=== PATIENT | female | born 1985 | race Caucasian/White ===

== ENCOUNTER 2020-04-21 09:53 | Emergency (ER) | payer BC, MEDICAID ==
[2020-04-21] MEDS ORDERED: Alum Hydrox/Mag Hydrox/Simeth 15 ML, Lidocaine 2% 15 ML PO ONE ×2 (10:47)
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
[2020-04-21 11:03] VITALS: BP 172/115; PULSE 95
== END 2020-04-21 11:37 | disposition home or self-care (01) ==
LOC: JP.ED 09:53
DX: O99.613 Diseases of the digestive system complicating pregnancy, third trimester (principal); K21.9 Gastro-esophageal reflux disease without esophagitis; Z88.1 Allergy status to other antibiotic agents; Z3A.33 33 weeks gestation of pregnancy
CPT/HCPCS: 36415; 80053; 81001; 82150; 83690; 85025; 99283; 99284; A9270-GY

== ENCOUNTER 2020-04-21 11:29 | Observation (INO) | payer BC, MEDICAID ==
[2020-04-21] MEDS ORDERED: Sodium Chloride 0.9% 1,000 ML IV SCH (12:15)
[2020-04-21] MEDS ORDERED: Labetalol 20 MG/4 ML Syringe IVPUSH ONE (12:56)
[2020-04-21] MEDS ORDERED: Magnesium Sulfate/Water 4 GM/100 ML BAG ONE (13:40)
[2020-04-21] MEDS ORDERED: Sodium Chloride 0.9% 10 ML Syringe FLUSH PRN (13:44)
[2020-04-21] MEDS ORDERED: Dextrose 5%-Lactated Ringers 1,000 ML IV SCH (13:45)
[2020-04-21] MEDS ORDERED: Ondansetron 4 MG/2 ML SDV IVPUSH PRN (13:51)
[2020-04-21] MEDS ORDERED: Magnesium Sulfate/Water 40 GM/1,000 ML BAG ONE (13:51)
[2020-04-21] MEDS ORDERED: Magnesium Sulfate/Water 40 GM/1,000 ML BAG IV SCH (14:00)
[2020-04-21] MEDS ORDERED: Calcium Gluconate 10% 1 GM/10 ML SDV IVPUSH PRN (14:00)
[2020-04-21] MEDS: Betamethasone Acetate/Betamethasone Sod Phosphate 30 MG/5 ML MDV IM ONE ×2 (14:45→14:50)
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
--- NOTE | 2020-04-21 15:14 | PCM.PN ---
- General Info Date of Service: 04/21/20 - Review of Systems General: Reports: No Symptoms HEENT: Reports: No Symptoms, Other (some blurry vision at times) Pulmonary: Reports: No Symptoms Cardiovascular: Reports: No Symptoms Gastrointestinal: Reports: Abdominal Pain, Nausea Genitourinary: Reports: No Symptoms Musculoskeletal: Reports: No Symptoms Skin: Reports: No Symptoms Neurological: Reports: No Symptoms Psychiatric: Reports: No Symptoms - Patient Data Vitals - Most Recent: Last Vital Signs Temp 35.1 C L 04/21/20 11:39 Pulse 82 04/21/20 14:35 Resp 16 04/21/20 14:35 BP 141/91 H 04/21/20 14:35 Pulse Ox 93 L 04/21/20 14:35 Weight - Most Recent: 129 kg Lab Results Last 24 Hours: Laboratory Results - last 24 hr 04/21/20 04/21/20 04/21/20 Range/Units 10:54 10:54 12:11 Magnesium (1.8-2.4) mg/dL Lactate Dehydrogenase 297 H (82-234) U/L Ur Random Creatinine 246.6 (20.0-370.0) mg/dL U Random Total Protein 1784.0 H (6.0-11.9) mg/dL Protein/Creatinin Ratio 7234.4 H (21.0-161.0) mg/g Urine Opiates Screen (NEGATIVE) Ur Oxycodone Screen (NEGATIVE) Urine Methadone Screen (NEGATIVE) Ur Propoxyphene Screen (NEGATIVE) Ur Barbiturates Screen (NEGATIVE) Ur Tricyclics Screen (NEGATIVE) Ur Phencyclidine Scrn (NEGATIVE) Ur Amphetamine Screen (NEGATIVE) U Methamphetamines Scrn (NEGATIVE) Urine MDMA Screen (NEGATIVE) U Benzodiazepines Scrn (NEGATIVE) U Cocaine Metab Screen (NEGATIVE) U Marijuana (THC) Screen (NEGATIVE) HIV-1 Ab Rapid Screen (NON-REACT.) SARS CoV-2 RNA Rapid IFEOMA Blood Type O NEGATIVE 04/21/20 04/21/20 04/21/20 Range/Units 13:24 13:25 13:30 Magnesium 1.6 L (1.8-2.4) mg/dL Lactate Dehydrogenase (82-234) U/L Ur Random Creatinine (20.0-370.0) mg/dL U Random Total Protein (6.0-11.9) mg/dL Protein/Creatinin Ratio (21.0-161.0) mg/g Urine Opiates Screen Negative (NEGATIVE) Ur Oxycodone Screen Negative (NEGATIVE) Urine Methadone Screen Negative (NEGATIVE) Ur Propoxyphene Screen Negative (NEGATIVE) Ur Barbiturates Screen Negative (NEGATIVE) Ur Tricyclics Screen Negative (NEGATIVE) Ur Phencyclidine Scrn Negative (NEGATIVE) Ur Amphetamine Screen Negative (NEGATIVE) U Methamphetamines Scrn Negative (NEGATIVE) Urine MDMA Screen Negative (NEGATIVE) U Benzodiazepines Scrn Negative (NEGATIVE) U Cocaine Metab Screen Negative (NEGATIVE) U Marijuana (THC) Screen Negative (NEGATIVE) HIV-1 Ab Rapid Screen (NON-REACT.) SARS CoV-2 RNA Rapid IFEOMA Negative Blood Type 04/21/20 Range/Units 13:40 Magnesium (1.8-2.4) mg/dL Lactate Dehydrogenase (82-234) U/L Ur Random Creatinine (20.0-370.0) mg/dL U Random Total Protein (6.0-11.9) mg/dL Protein/Creatinin Ratio (21.0-161.0) mg/g Urine Opiates Screen (NEGATIVE) Ur Oxycodone Screen (NEGATIVE) Urine Methadone Screen (NEGATIVE) Ur Propoxyphene Screen (NEGATIVE) Ur Barbiturates Screen (NEGATIVE) Ur Tricyclics Screen (NEGATIVE) Ur Phencyclidine Scrn (NEGATIVE) Ur Amphetamine Screen (NEGATIVE) U Methamphetamines Scrn (NEGATIVE) Urine MDMA Screen (NEGATIVE) U Benzodiazepines Scrn (NEGATIVE) U Cocaine Metab Screen (NEGATIVE) U Marijuana (THC) Screen (NEGATIVE) HIV-1 Ab Rapid Screen Non-reactive (NON-REACT.) SARS CoV-2 RNA Rapid IFEOMA Blood Type Med Orders - Current: Current Medications Calcium Gluconate (Calcium Gluconate) 1 gm IVPUSH ONETIME PRN PRN Reason: MAGNESIUM TOXICITY Sodium Chloride (Normal Saline) 1,000 mls @ 0 mls/hr IV ASDIRECTED [facility] Last Admin: 04/21/20 12:30 Dose: 25 mls/hr Documented by: Magnesium Sulfate (Magnesium Sulfate In Water Premix) 40 gm in 1,000 mls @ 50 mls/hr IV ASDIRECTED [facility] Last Admin: 04/21/20 14:26 Dose: 50 mls/hr Documented by: Dextrose/Lactated Ringer's (Dextrose 5%-Lactated Ringers) 1,000 mls @ 0 mls/hr IV ASDIRECTED [facility] Ondansetron HCl (Zofran) 4 mg IVPUSH Q4H PRN PRN Reason: Nausea/Vomiting Last Admin: 04/21/20 14:13 Dose: 4 mg Documented by: Sodium Chloride (Saline Flush) 10 ml FLUSH ASDIRECTED PRN PRN Reason: Keep Vein Open Discontinued Medications Betamethasone Acet/Betameth SodPhos (Celestone Soluspan 6 Mg/Ml) 12 mg IM ONETIME ONE Stop: 04/21/20 13:31 Last Admin: 04/21/20 14:50 Dose: 2 ml Documented by: Magnesium Sulfate 6 gm/ Sodium (Chloride) 162 mls @ 350 mls/hr IV ONETIME ONE Stop: 04/21/20 14:12 Last Admin: 04/21/20 13:49 Dose: 350 mls/hr Documented by: Magnesium Sulfate (Magnesium Sulfate In Water Premix) Confirm Administered Dose 6 gm in 150 mls @ as directed .ROUTE .STK-MED ONE Stop: 04/21/20 13:41 Last Admin: 04/21/20 14:07 Dose: Not Given Documented by: Magnesium Sulfate (Magnesium Sulfate In Water Premix) Confirm Administered Dose 40 gm in 1,000 mls @ as directed .ROUTE .STK-MED ONE Stop: 04/21/20 13:52 Last Admin: 04/21/20 14:07 Dose: Not Given Documented by: Labetalol HCl (Normodyne) 20 mg IVPUSH NOW ONE; Protocol Stop: 04/21/20 12:57 Last Admin: 04/21/20 13:32 Dose: 20 mg Documented by: Sepsis Event Note - Focused Exam Vital Signs: Vital Signs Temp Pulse Resp BP Pulse Ox 04/21/20 14:35 82 16 141/91 H 93 L 04/21/20 14:30 91 16 155/89 H 93 L 04/21/20 14:25 82 16 145/87 H 93 L 04/21/20 14:20 83 16 145/88 H 97 04/21/20 14:15 93 16 148/99 H 97 04/21/20 14:10 88 16 146/93 H 97 04/21/20 14:05 87 16 152/84 H 95 04/21/20 14:00 91 16 150/86 H 98 04/21/20 13:55 87 16 149/94 H 95 04/21/20 13:49 87 16 148/87 H 04/21/20 13:44 157/97 H 04/21/20 13:40 153/90 H 04/21/20 13:33 89 171/95 H 04/21/20 13:15 87 16 153/83 H 98 04/21/20 13:00 81 16 152/91 H 97 04/21/20 12:40 87 16 166/97 H 96 04/21/20 12:30 84 16 155/92 H 97 04/21/20 11:49 93 156/93 H 04/21/20 11:39 35.1 C L 92 16 151/100 H 97 - Problem List & Annotations (1) Abdominal pain SNOMED Code(s): 23168347 Code(s): R10.9 - UNSPECIFIED ABDOMINAL PAIN Status: Acute Current Visit: Yes Qualifiers: Abdominal location: right upper quadrant Qualified Code(s): R10.11 - Right upper quadrant pain (2) Family history of congenital heart defect SNOMED Code(s): 780458198 Code(s): Z82.79 - FAM HX OF CONGEN MALFORM, DEFORMATIONS AND CHROMSOML ABNLT Status: Acute Current Visit: Yes (3) Grand multipara SNOMED Code(s): 45733125 Code(s): Z64.1 - PROBLEMS RELATED TO MULTIPARITY Status: Acute Current Visit: Yes (4) History of 2 sections SNOMED Code(s): 846924031 Code(s): Z98.891 - HISTORY OF UTERINE SCAR FROM PREVIOUS SURGERY Status: Acute Current Visit: Yes (5) History of rupture of uterus SNOMED Code(s): 759983878, 780811279 Code(s): Z87.828 - PERSONAL HISTORY OF OTH (HEALED) PHYSICAL INJURY AND TRAUMA Status: Acute Current Visit: Yes (6) Insufficient care SNOMED Code(s): 4300235911978 Code(s): O09.30 - SUPRVSN OF PREG W INSUFFICIENT ANTENAT CARE, UNSP TRIMESTER Status: Acute Current Visit: Yes Qualifiers: Trimester: third trimester Qualified Code(s): O09.33 - Supervision of with insufficient care, third trimester (7) Pre-eclampsia in third trimester SNOMED Code(s): 291248063, 165698582 Code(s): O14.93 - UNSPECIFIED PRE-ECLAMPSIA, THIRD TRIMESTER Status: Acute Current Visit: Yes (8) Protein in urine SNOMED Code(s): 69774426 Code(s): R80.9 - PROTEINURIA, UNSPECIFIED Status: Acute Current Visit: Yes Qualifiers: Proteinuria type: gestational Trimester: third trimester Qualified Code(s): O12.13 - Gestational proteinuria, third trimester - Problem List Review Problem List Initiated/Reviewed/Updated: Yes - My Orders Last 24 Hours: My Active Orders 04/21/20 10:54 RUBELLA ANTIBODIES, IGG Routine T PALLIDUM SCREENING CASCADE Routine 04/21/20 12:15 Sodium Chloride 0.9% [Normal Saline] 1,000 ml IV ASDIRECTED 04/21/20 13:21 BPP w NST [US] Routine OB 1st Tri Sgl 1st Gest [US] Routine 04/21/20 13:33 Intake and Output Strict [RC] ASDIRECTED Urinary Catheter Assessment [RC] ASDIRECTED 04/21/20 13:40 HBSAG SCREEN Routine 04/21/20 13:44 Sodium Chloride 0.9% [Saline Flush] 10 ml FLUSH ASDIRECTED PRN Resuscitation Status Routine 04/21/20 13:45 Patient Status [ADT] Routine Heart Rate [RC] Click to Edit Monitoring [RC] CONTINUOUS Height and Weight [RC] UPON Insert Urinary Catheter [OM.PC] Q24H Intake and Output Strict [RC] ASDIRECTED Notify Provider [RC] PRN Notify Provider [RC] PRN Notify Provider [RC] PRN Notify Provider [RC] PRN Peripheral IV Care [RC] . DIRECTED Peripheral IV Care [RC] . DIRECTED Positioning, Left Lateral [RC] ASDIRECTED Vital Signs [RC] PER UNIT ROUTINE Dextrose 5%-Lactated Ringers 1,000 ml IV ASDIRECTED Deep Tendon Reflexes [WOMSER] Per Unit Routine Peripheral IV Insertion Adult [OM.PC] Routine Seizure Precautions [OM.PC] Routine 04/21/20 13:51 Ondansetron [Zofran] 4 mg IVPUSH Q4H PRN 04/21/20 14:00 Calcium Gluconate 1 gm IVPUSH ONETIME PRN Magnesium Sulfate/Water [Magnesium Sulfate in Water Premix] 40 gm in 1,000 ml IV ASDIRECTED - Assessment Assessment:: 04/21/2020 34 yo at 32 5/7 gestational weeks Pre-eclampsia HELLP syndrome Elevated Urine Protein Grand multiparity History of 2 C/Sections History of Uterine Rupture Insufficient Care O negative blood type BP currently 150s/90s with IV labetalol Ultrasound shows breech presentation BPP-09/[address] Barry[facility] contacted for transfer Patient agrees with plan of care and verbalizes understanding Plan to transport as soon as possible - Plan Plan:: 04/21/2020 34 yo here at a unconfirmed gestational age 32 5/7 [id number]-95/28/2021 that was done with a noncertified cabin furnishings installer. Patient was planning a home with Ashwini Mitchell-veneer stock layer. She has had 2-C/Sections last one being due to uterine rupture. When presenting it was what she said was reflux with right upper quadrant pain and was wanting evaluated in the emergency department due to planning a home , after ER began to evaluate it was noted that she was very hypertensive. Because of this she was transferred up to the Labor and Delivery department. Bps have been as high as 170s over 115. On admission patient was unsure if would agree to treatment-did allow us to do some confirming labs See lab [id number], Platelets-123, AST-69, ALT-94, LDH-297, Protein/Creatinine-7234, Patient was then educated that she has severe preeclampsia with impending HELLP syndrome. Patient then agreed to treatment and transfer if accepting provider. Pre-eclampsia HELLP syndrome Elevated Urine Protein Grand multiparity History of 2 C/Sections History of Uterine Rupture Insufficient Care O negative blood type Plan- Give labetalol 20mg IV now, Start Magnesium IV now-6gram bolus, then 2 grams per hour Betamethasone 12mg IM now repeat dose in 24 hours if still IV TKO [id number] Continuous monitoring Bedrest Insert urine massey catheter with urometer Hourly Intake and Output Vital signs per hypertension policy Deep tendon refluxes and clonus every 1-2 hrs Draw OB panel labs Ultrasound complete and BPP stat Seizure precautions Plan to get accepting and transfer to a higher level of care with NICU accepting
--- NOTE | 2020-04-21 15:28 | PCM.DCSUM1 ---
Discharge Summary - Hospital Course HPI Initial Comments: 04/21/2020 34 yo here at a unconfirmed gestational age 32 5/7 [id number]/28/2021 that was done with a noncertified heater installer. Patient was planning a home with Ashwini Mitchell-rug layer. She has had 2-C/Sections last one being due to uterine rupture. When presenting it was what she said was reflux with right upper quadrant pain and was wanting evaluated in the emergency department due to planning a home , after ER began to evaluate it was noted that she was very hypertensive. Because of this she was transferred up to the Labor and Delivery department. Bps have been as high as 170s over 115. On admission patient was unsure if would agree to treatment-did allow us to do some confirming labs See lab [id number]-10.5, Platelets-123, AST-69, ALT-94, LDH-297, Protein/Creatinine-7234, Patient was then educated that she has severe preeclampsia with impending HELLP syndrome. Patient then agreed to treatment and transfer if accepting provider. Pre-eclampsia HELLP syndrome Elevated Urine Protein Grand multiparity History of 2 C/Sections History of Uterine Rupture Insufficient Care O negative blood type - Discharge Data Discharge Date: 04/21/20 Discharge Disposition: DC/Tfer to Acute Hospital 02 Condition: Good - Referral to Home Health Primary Care Physician: PCP None - Discharge Diagnosis/Problem(s) (1) Abdominal pain SNOMED Code(s): 18901268 ICD Code: R10.9 - UNSPECIFIED ABDOMINAL PAIN Status: Acute Current Visit: Yes Qualifiers: Abdominal location: right upper quadrant Qualified Code(s): R10.11 - Right upper quadrant pain (2) Family history of congenital heart defect SNOMED Code(s): 890767588 ICD Code: Z82.79 - FAM HX OF CONGEN MALFORM, DEFORMATIONS AND CHROMSOML ABNLT Status: Acute Current Visit: Yes (3) Grand multipara SNOMED Code(s): 87607042 ICD Code: Z64.1 - PROBLEMS RELATED TO MULTIPARITY Status: Acute Current Visit: Yes (4) History of 2 sections SNOMED Code(s): 394862078 ICD Code: Z98.891 - HISTORY OF UTERINE SCAR FROM PREVIOUS SURGERY Status: Acute Current Visit: Yes (5) History of rupture of uterus SNOMED Code(s): 093189667, 763813610 ICD Code: Z87.828 - PERSONAL HISTORY OF OTH (HEALED) PHYSICAL INJURY AND TRAUMA Status: Acute Current Visit: Yes (6) Insufficient care SNOMED Code(s): 2954160348676 ICD Code: O09.30 - SUPRVSN OF PREG W INSUFFICIENT ANTENAT CARE, UNSP TRIMESTER Status: Acute Current Visit: Yes Qualifiers: Trimester: third trimester Qualified Code(s): O09.33 - Supervision of with insufficient care, third trimester (7) Pre-eclampsia in third trimester SNOMED Code(s): 537964627, 408084147 ICD Code: O14.93 - UNSPECIFIED PRE-ECLAMPSIA, THIRD TRIMESTER Status: Acute Current Visit: Yes (8) Protein in urine SNOMED Code(s): 76299519 ICD Code: R80.9 - PROTEINURIA, UNSPECIFIED Status: Acute Current Visit: Yes Qualifiers: Proteinuria type: gestational Trimester: third trimester Qualified Code(s): O12.13 - Gestational proteinuria, third trimester - Discharge Plan *PRESCRIPTION DRUG MONITORING PROGRAM REVIEWED*: No *COPY OF PRESCRIPTION DRUG MONITORING REPORT IN PATIENT LEONARDO: No Home Medications: Home Meds Vit #76/Iron,Carb/Fa [Pnv 29-1 Tablet] 1 each PO DAILY 02/03/14 [History] - Discharge Summary/Plan Comment DC Time >30 min.: Yes Discharge Summary/Plan Comment: Patient is transfer care to a higher level of care in [facility]-Dr. Barry - Patient Data Vitals - Most Recent: Last Vital Signs Temp 35.1 C L 04/21/20 11:39 Pulse 88 04/21/20 15:10 Resp 16 04/21/20 15:10 BP 152/91 H 04/21/20 15:10 Pulse Ox 93 L 04/21/20 15:10 Weight - Most Recent: 129 kg Lab Results - Last 24 hrs: Laboratory Results - last 24 hr 04/21/20 04/21/20 04/21/20 Range/Units 10:54 10:54 12:11 Magnesium (1.8-2.4) mg/dL Lactate Dehydrogenase 297 H (82-234) U/L Ur Random Creatinine 246.6 (20.0-370.0) mg/dL U Random Total Protein 1784.0 H (6.0-11.9) mg/dL Protein/Creatinin Ratio 7234.4 H (21.0-161.0) mg/g Urine Opiates Screen (NEGATIVE) Ur Oxycodone Screen (NEGATIVE) Urine Methadone Screen (NEGATIVE) Ur Propoxyphene Screen (NEGATIVE) Ur Barbiturates Screen (NEGATIVE) Ur Tricyclics Screen (NEGATIVE) Ur Phencyclidine Scrn (NEGATIVE) Ur Amphetamine Screen (NEGATIVE) U Methamphetamines Scrn (NEGATIVE) Urine MDMA Screen (NEGATIVE) U Benzodiazepines Scrn (NEGATIVE) U Cocaine Metab Screen (NEGATIVE) U Marijuana (THC) Screen (NEGATIVE) HIV-1 Ab Rapid Screen (NON-REACT.) SARS CoV-2 RNA Rapid IFEOMA Blood Type O NEGATIVE 04/21/20 04/21/20 04/21/20 Range/Units 13:24 13:25 13:30 Magnesium 1.6 L (1.8-2.4) mg/dL Lactate Dehydrogenase (82-234) U/L Ur Random Creatinine (20.0-370.0) mg/dL U Random Total Protein (6.0-11.9) mg/dL Protein/Creatinin Ratio (21.0-161.0) mg/g Urine Opiates Screen Negative (NEGATIVE) Ur Oxycodone Screen Negative (NEGATIVE) Urine Methadone Screen Negative (NEGATIVE) Ur Propoxyphene Screen Negative (NEGATIVE) Ur Barbiturates Screen Negative (NEGATIVE) Ur Tricyclics Screen Negative (NEGATIVE) Ur Phencyclidine Scrn Negative (NEGATIVE) Ur Amphetamine Screen Negative (NEGATIVE) U Methamphetamines Scrn Negative (NEGATIVE) Urine MDMA Screen Negative (NEGATIVE) U Benzodiazepines Scrn Negative (NEGATIVE) U Cocaine Metab Screen Negative (NEGATIVE) U Marijuana (THC) Screen Negative (NEGATIVE) HIV-1 Ab Rapid Screen (NON-REACT.) SARS CoV-2 RNA Rapid IFEOMA Negative Blood Type 04/21/20 Range/Units 13:40 Magnesium (1.8-2.4) mg/dL Lactate Dehydrogenase (82-234) U/L Ur Random Creatinine (20.0-370.0) mg/dL U Random Total Protein (6.0-11.9) mg/dL Protein/Creatinin Ratio (21.0-161.0) mg/g Urine Opiates Screen (NEGATIVE) Ur Oxycodone Screen (NEGATIVE) Urine Methadone Screen (NEGATIVE) Ur Propoxyphene Screen (NEGATIVE) Ur Barbiturates Screen (NEGATIVE) Ur Tricyclics Screen (NEGATIVE) Ur Phencyclidine Scrn (NEGATIVE) Ur Amphetamine Screen (NEGATIVE) U Methamphetamines Scrn (NEGATIVE) Urine MDMA Screen (NEGATIVE) U Benzodiazepines Scrn (NEGATIVE) U Cocaine Metab Screen (NEGATIVE) U Marijuana (THC) Screen (NEGATIVE) HIV-1 Ab Rapid Screen Non-reactive (NON-REACT.) SARS CoV-2 RNA Rapid IFEOMA Blood Type Med Orders - Current: Current Medications Calcium Gluconate (Calcium Gluconate) 1 gm IVPUSH ONETIME PRN PRN Reason: MAGNESIUM TOXICITY Sodium Chloride (Normal Saline) 1,000 mls @ 0 mls/hr IV ASDIRECTED [facility] Last Admin: 04/21/20 12:30 Dose: 25 mls/hr Documented by: Magnesium Sulfate (Magnesium Sulfate In Water Premix) 40 gm in 1,000 mls @ 50 mls/hr IV ASDIRECTED [facility] Last Admin: 04/21/20 14:26 Dose: 50 mls/hr Documented by: Dextrose/Lactated Ringer's (Dextrose 5%-Lactated Ringers) 1,000 mls @ 0 mls/hr IV ASDIRECTED [facility] Ondansetron HCl (Zofran) 4 mg IVPUSH Q4H PRN PRN Reason: Nausea/Vomiting Last Admin: 04/21/20 14:13 Dose: 4 mg Documented by: Sodium Chloride (Saline Flush) 10 ml FLUSH ASDIRECTED PRN PRN Reason: Keep Vein Open Discontinued Medications Betamethasone Acet/Betameth SodPhos (Celestone Soluspan 6 Mg/Ml) 12 mg IM ONETIME ONE Stop: 04/21/20 13:31 Last Admin: 04/21/20 14:50 Dose: 2 ml Documented by: Magnesium Sulfate 6 gm/ Sodium (Chloride) 162 mls @ 350 mls/hr IV ONETIME ONE Stop: 04/21/20 14:12 Last Admin: 04/21/20 13:49 Dose: 350 mls/hr Documented by: Magnesium Sulfate (Magnesium Sulfate In Water Premix) Confirm Administered Dose 6 gm in 150 mls @ as directed .ROUTE .STK-MED ONE Stop: 04/21/20 13:41 Last Admin: 04/21/20 14:07 Dose: Not Given Documented by: Magnesium Sulfate (Magnesium Sulfate In Water Premix) Confirm Administered Dose 40 gm in 1,000 mls @ as directed .ROUTE .STK-MED ONE Stop: 04/21/20 13:52 Last Admin: 04/21/20 14:07 Dose: Not Given Documented by: Labetalol HCl (Normodyne) 20 mg IVPUSH NOW ONE; Protocol Stop: 04/21/20 12:57 Last Admin: 04/21/20 13:32 Dose: 20 mg Documented by:
[2020-04-21 19:21] VITALS: BP 148/95; PULSE 89
[2020-04-22 09:12] LABS: HBSAG SCREEN Negative (Negative)
--- NOTE | 2020-04-24 11:04 | US ---
BPP w NST INDICATION: preeclampsia COMPARISON: None FINDINGS: Single live IUP at 32 weeks 2 day gestation heart rate: 136 BPM. Biophysical profile score: 6/8. No breathing movement is identified GERARDO: 12.1 cm. IMPRESSION: Abnormal biophysical profile score of 6/8 due to lack of breathing motion. OB Ltd 1 or More Fetus CLINICAL HISTORY: Preeclampsia FINDINGS: Scans are limited due to patient body habitus. There is a single viable intrauterine in breech position. The ultrasound age by multiple parameters is 32 weeks 2 days. GE is 06/24/2020 Estimated weight is 1915 g. This is in the 47th percentile by menstrual age IMPRESSION: Limited study due to patient body habitus 32 week 2 day gestation in breech position Placenta not well seen
[2020-04-24 22:09] LABS: T PALLIDUM ANTIBODIES Non Reactive (Non Reactive)
== END 2020-04-21 15:30 ==
LOC: JP.OBCHECK 11:29 → JP.OB 11:30
PROVIDERS: ADMIT Advanced Practice Midwife; ATTEND Advanced Practice Midwife
DX: O14.93 Unspecified pre-eclampsia, third trimester (principal); O14.23 HELLP syndrome (HELLP), third trimester; O09.33 Supervision of pregnancy with insufficient antenatal care, third trimester; O12.13 Gestational proteinuria, third trimester; Z20.822 Contact with and (suspected) exposure to COVID-19; Z82.79 Family history of other congenital malformations, deformations and chromosomal abnormalities; Z64.1 Problems related to multiparity; Z98.891 History of uterine scar from previous surgery; Z87.828 Personal history of other (healed) physical injury and trauma; Z88.8 Allergy status to other drugs, medicaments and biological substances; Z90.49 Acquired absence of other specified parts of digestive tract; Z3A.32 32 weeks gestation of pregnancy
CPT/HCPCS: 36415; 51702; 76815; 76815-26; 76818; 76818-26; 80305-QW; 82570; 83615; 83735; 84156; 86762; 86780; 86900; 86901; 87340; 87449; 96365; 96366; 96372; 96375; 99211; G0378; J0702; J2405; J3475; J3490; J7030; J7050; U0002